=== PATIENT | male | born 1990 | race African-American/Black ===

== ENCOUNTER 2024-02-15 01:28 | Emergency (ER) | payer OTHER, SELFPAY ==
[2024-02-15 02:12] VITALS: BP 140/63; PULSE 83; RESP 18; TEMP 36.2; O2SAT 98; BMI 42.4
[2024-02-15 02:36] VITALS: PULSE 96; O2SAT 98
[2024-02-15 02:37] VITALS: BP 161/79; PULSE 87; O2SAT 98
--- NOTE | 2024-02-15 02:51 | ED.GENADULT ---
HPI - General Adult General Chief complaint: Weakness Stated complaint: tingling sensation for 2 days weakness in legs Time Seen by Provider: 02/15/24 02:45 Source: patient, RN notes reviewed and old records reviewed Mode of arrival: Ambulatory Limitations: no limitations History of Present Illness HPI narrative: 34-year-old male no reported medical issues but complains of numbness and tingling in his hands and bilateral lower extremities tracking upwards for several days. 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 Patient states no fevers no cold cough congestion. No headaches, no chest pain or shortness of breath no nausea or vomiting. No issues with bowel movements, no dysuria urgency or frequency. No incontinence fecal or urinary. Describes numbness and tingling discomfort in bilateral lower extremities up to the hips as well as bilateral hands but not above the hands. Patient notes he was to have little bit of lower back pain but that has not improved over time. He does not have any back pain currently. Describes feels a little bit weak but is able to ambulate. He states it is little bit difficult to ambulate can can not feel the ground very well. He did see primary care physician had labs drawn but has not had those resulted. Has a little difficulty with sleeping because it is so uncomfortable which is what prompted him to come tonight. He has not on any prescription medications. Prior surgeries include vasectomy. No known drug allergies. No regular tobacco, no regular alcohol or recreational drugs. He is accompanied by his family. Related Data Previous Rx's Medication Instructions Recorded gabapentin 300 mg capsule 300 mg PO TID #30 caps 02/15/24 (Neurontin) Allergies Allergy/AdvReac Type Severity Reaction Status Date / Time No Known Drug Allergies Allergy Verified 02/15/24 02:20 Review of Systems Review of Systems ROS Unobtainable: All systems reviewed & are unremarkable except as noted in HPI and below Exam Narrative Exam Narrative: GEN: well nourished, well appearing male, alert and oriented x [default value], patient appears to be in mild distress. HEENT: Atraumatic, pupils are equal round reactive to light, extraocular movements are intact, nares are clear, there is no conjunctival pallor. Throat is clear without any exudates, erythema, tonsillar enlargement or uvular deviation, no facial droop HEART: Regular rate and rhythm without murmur, clicks, rubs. LUNGS:Lungs clear to auscultation, no wheezes, rales, crackles, chest moves symmetrically ABD:bowel sounds normal, soft, non-tender, no guarding, rebound, rigidity, no masses noted, no hepatosplenomegaly :No CVA tenderness MSCL: Non-tender, no muscle atrophy, muscles strength 5/5 upper and lower extremities, full range of motion, normal gait NEURO:CN 2-12 intact, sensation decreased bilateral feet and shins but present and equal, sensation to light touch is present throughout all 4 extremities, reflexes 2/4 upper and lower extremities. finger nose finger test normal, heel gusman test normal. SKIN: No rash, erythema or other skin changes noted. Initial Vital Signs Initial Vital Signs: Vital Signs Temperature 97.2 F L 02/15/24 02:12 Pulse Rate 83 02/15/24 02:12 Respiratory Rate 18 02/15/24 02:12 Blood Pressure 140/63 02/15/24 02:12 Pulse Oximetry 98 02/15/24 02:12 Oxygen Delivery Method Room Air 02/15/24 02:12 Course Orders Ordered: ED Orders 02/15/24 03:20 CBC Auto Diff [Complete Blood Count AUTO DIFF] Stat CMP [Comprehensive Metabolic Panel] Stat ESR [Erythrocyte Sedimentation Rate] Stat TSH [Thyroid Stimulating Hormone] Stat Discontinued Medications Gabapentin (Gabapentin 300 Mg Capsule) 300 mg PO NOW ONE Stop: 02/15/24 04:44 Last Admin: 02/15/24 04:56 Dose: 300 mg Documented By: Vital Signs Vital signs: Vital Signs - 8 hr 02/15/24 02:12 02/15/24 02:36 02/15/24 02:37 Temperature 97.2 F L Pulse Rate 83 96 H Respiratory Rate 18 Blood Pressure 140/63 161/79 H Pulse Oximetry 98 98 Oxygen Delivery Method Room Air 02/15/24 02:37 02/15/24 03:00 02/15/24 03:01 Temperature Pulse Rate 87 84 Respiratory Rate 20 Blood Pressure 135/82 Pulse Oximetry 98 100 Oxygen Delivery Method Room Air 02/15/24 03:01 02/15/24 04:59 Temperature Pulse Rate 85 85 Respiratory Rate 16 Blood Pressure 134/84 Pulse Oximetry 99 99 Oxygen Delivery Method Room Air Medical Decision Making Lab Data 02/15/24 03:20 02/15/24 03:20 Labs: Lab Results 02/15/24 Range/Units 03:20 WBC 5.8 (4.5-11.0) X10^3/uL RBC 4.43 L (4.5-5.9) X10^6/uL Hgb 14.8 (13.5-17.5) g/dL Hct 43.0 (41-53) % MCV 97.1 (80-100) fL MCH 33.6 (26-34) PG MCHC 34.6 (30-36) % RDW 12.8 (11.6-14.8) % Plt Count 299 (150-400) X10^3/uL Neut % (Auto) 27.5 L (50-75) % Lymph % (Auto) 57.1 H (25-40) % [place] % (Auto) 13.3 (3-14) % Eos % (Auto) 1.7 L (2-4) % Baso % (Auto) 0.4 (0-2) % Neut # (Auto) 1600 (1942-0514) /uL Lymph # (Auto) 3300 (7582-4634) /uL [place] # (Auto) 800 (0-900) /uL Eos # (Auto) 100 (0-450) /uL Baso # (Auto) 0 (0-100) /uL ESR 4 (0-15) MM/HR Sodium 137 (137-145) mmol/L Potassium 4.1 (3.4-5.1) mmol/L Chloride 103 (98-107) mmol/L Carbon Dioxide 27 (22-32) mmol/L BUN 14 (9-20) mg/dL Creatinine 1.08 (0.66-1.25) mg/dL Estimated GFR > 60 (>60) mL/min BUN/Creatinine Ratio 13.0 (6-22) Glucose 95 (70-100) mg/dL Calcium 8.8 (8.4-10.2) mg/dL Total Bilirubin 0.5 (0.2-1.3) mg/dL AST 68 H (17-59) IU/L ALT 51 H (<50) IU/L Alkaline Phosphatase 54 (38-126) U/L Total Protein 7.5 (6.3-8.2) g/dL Albumin 4.3 (3.5-5.0) g/dL Globulin 3.2 (1.7-4.1) g/dL Albumin/Globulin Ratio 1.3 (1.0-2.8) TSH 2.43 (0.47-4.68) uIU/mL MDM Narrative Medical decision making narrative: 34-year-old male describing peripheral neuropathy, no known history of diabetes had an episode that lasted about a month in the past ultimately resolved did not have any workup at that time. Has been quite uncomfortable this most recent episode in keeping him from getting sleep. He did not follow up with outpatient and had labs sent but have not received results. Patient's neuro exam shows little bit of decreased sensation bilateral lower extremities he does have sensation to light touch but the underside of the feet is lessened. Otherwise has normal neurologic exam, normal gait. Labs show white count of 5.8 platelets of 229, hemoglobin of 14, electrolytes are appropriate creatinine is 1.08 glucose is 95 AST ALT are slightly elevated at 68 and 51 TSH is 2.43. ESR is 4 Discussed with patient can try Neurontin to see if this is helpful for symptoms. It would recommend follow up for further workup for peripheral neuropathy. Discharge Plan Departure Patient Disposition: Home Clinical Impression: Peripheral neuropathy Instructions: DI for Peripheral Neuropathy Activity Restrictions/Additional Instructions: Follow up with primary care for further workup what you are describing is peripheral neuropathy there can be a variety of causes of this. A copy of your labs today are included in your paperwork. You can take Neurontin 1 tablet every 8 hours. This medication can be titrated to higher doses if necessary. Talk with your physician about adjusting it if needed. Prescription was sent to [facility] Please return for new weakness, severe headaches, fevers, difficulty with breathing, persistent vomiting, new incontinence, new weakness or inability to ambulate safely or other new or concerning changes. Prescriptions: New gabapentin [Neurontin] 300 mg capsule 300 mg PO TID Qty: 30 0RF Referrals: ProviderRoger [Primary Care Provider] - Stand Alone Forms: Patient Portal/API/Survey
[2024-02-15 03:00] VITALS: PULSE 84; O2SAT 100
[2024-02-15 03:01] VITALS: BP 135/82; PULSE 85; RESP 20; O2SAT 99
--- NOTE | 2024-02-15 03:24 | PC.NURSE ---
21g butterfly needle straight stick for labs left hand without complications.
[2024-02-15 03:38] LABS: Add Manual Diff / Slide Review NO; Basophils Absolute Auto 0 /uL (0-100); Basophils Percent Auto 0.4 % (0-2); Eosinophils Absolute Auto 100 /uL (0-450); Eosinophils Percent Auto 1.7 % (2-4); Hemoglobin 14.8 g/dL (13.5-17.5); Lymphocytes Absolute Auto 3300 /uL (1100-4500); Lymphocytes Percent Auto 57.1 % (25-40); Mean Corpuscular HGB Conc 34.6 % (30-36); Mean Corpuscular Hemoglobin 33.6 PG (26-34); Mean Corpuscular Volume 97.1 fL (80-100); Monocytes Absolute Auto 800 /uL (0-900); Monocytes Percent Auto 13.3 % (3-14); Neutrophils Absolute Auto 1600 /uL (1500-7000); Neutrophils Percent Auto 27.5 % (50-75); Platelet Count 299 X10^3/uL (150-400); Red Blood Cell Count 4.43 X10^6/uL (4.5-5.9); Red Cell Distribution Width 12.8 % (11.6-14.8); White Blood Cell Count 5.8 X10^3/uL (4.5-11.0)
[2024-02-15 03:43] LABS: Alanine Aminotransferase 51 IU/L (<50); Albumin 4.3 g/dL (3.5-5.0); Albumin Globulin Ratio 1.3 (1.0-2.8); Alkaline Phosphatase 54 U/L (38-126); Aspartate Aminotransferase 68 IU/L (17-59); Bilirubin Total 0.5 mg/dL (0.2-1.3); Blood Urea Nitrogen 14 mg/dL (9-20); Calcium 8.8 mg/dL (8.4-10.2); Carbon Dioxide 27 mmol/L (22-32); Chloride 103 mmol/L (98-107); Estimated Glomerular Filt Rate > 60 mL/min (>60); Globulin 3.2 g/dL (1.7-4.1); Glucose 95 mg/dL (70-100); HEMOLYSIS 31 (0-50); Potassium 4.1 mmol/L (3.4-5.1); Sodium 137 mmol/L (137-145); Total Protein 7.5 g/dL (6.3-8.2)
[2024-02-15 04:15] LABS: Thyroid Stimulating Hormone 2.43 uIU/mL (0.47-4.68)
[2024-02-15 04:28] LABS: Erythrocyte Sedimentation Rate 4 MM/HR (0-15)
[2024-02-15] MEDS: GABAPENTIN 300 MG CAPSULE PO (04:56)
[2024-02-15 04:59] VITALS: BP 134/84; PULSE 85; RESP 16; O2SAT 99
== END 2024-02-15 05:01 | disposition home or self-care (01) ==
PROVIDERS: Emergency Provider Emergency Medicine
DX: G62.9 Polyneuropathy, unspecified (principal); M54.2 Cervicalgia
CPT/HCPCS: 80053; 84443; 85025; 85651; 99283

== ENCOUNTER 2024-02-19 10:00 | Emergency (ER) | payer OTHER, SELFPAY ==
[2024-02-19] VITALS (20 sets, daily range): BP systolic 133–165; BP diastolic 76–99; PULSE 76–100; RESP 14–17; TEMP 36.3; O2SAT 92–100; BMI 42.9
--- NOTE | 2024-02-19 15:13 | DI.CT.S_ITS ---
PROCEDURE: CT LUMBAR SPINE WO CON INDICATIONS: cannot walk TECHNIQUE: Noncontrast 3 mm thick sections acquired from the T12 level to the sacrum. Sagittal and coronal reformats were constructed. Oblique axial images were also reformatted through the disc levels. For radiation dose reduction, the following was used: automated exposure control. COMPARISON: , CT, CT CERVICAL SPINE WO CON, 02/19/2024, 15:22. , CT, CT THORACIC SPINE WO CON, 02/19/2024, 15:22. , CT, CT HEAD/BRAIN WO CON, 02/19/2024, 15:22. FINDINGS: Image quality: Excellent. Bones: No acute vertebral body compression fractures. No suspicious lytic or blastic bony lesions. No pars defects. Mild dextroconvex scoliotic curvature is seen. No focal AP alignment abnormality is seen. Partial fusion of the sacroiliac joints can be seen, right worse than left. T12-L1: Normal. L1-L2: Normal. L2-L3: The disc height is well preserved. Mild generalized disc bulge is seen. [id number] neural foraminal narrowing can be seen. No central canal narrowing is seen. L3-L4: The disc height is well preserved. Mild generalized disc bulge is seen. There is moderate right-sided and mild left-sided neural foraminal narrowing. Minimal central canal narrowing is seen. L4-L5: The disc height is well preserved. Mild to moderate generalized disc bulge is seen. There is a superimposed central disc protrusion. There is at least moderate bilateral neural foraminal narrowing seen. Mild central canal narrowing is seen. L5-S1: There is mild loss of disc height. Mild disc bulge is seen, with a mild central disc protrusion. There is at least moderate bilateral neural foraminal narrowing seen. Mild central canal narrowing is seen. Soft tissues: No retroperitoneal masses or hematomas. Visualized aorta is normal in caliber. A normal appendix is noted. IMPRESSION: Premature sites of narrowing can be seen, including at least moderate bilateral neural foraminal narrowing at L4-L5 and L5-S1. Dictated by: Miky aHstings M.D. on 02/19/2024 at 15:16 Approved by: Miky Hastings M.D. on 02/19/2024 at 15:19
--- NOTE | 2024-02-19 15:13 | DI.CT.S_ITS ---
PROCEDURE: CT THORACIC SPINE WO CON INDICATIONS: cannot walk TECHNIQUE: Noncontrast 3 mm thick sections acquired through the region of interest in the thoracic spine. Sagittal and coronal reformats were then constructed. For radiation dose reduction, the following was used: automated exposure control. COMPARISON: [facility], CT, CT CERVICAL SPINE WO CON, 02/19/2024, 15:22. [facility], CT, CT LUMBAR SPINE WO CON, 02/19/2024, 15:22. [facility], CT, CT HEAD/BRAIN WO CON, 02/19/2024, 15:22. FINDINGS: Image quality: This study is limited by body habitus. Bones: There is normal overall bony alignment. No acute vertebral body compression fractures. No suspicious sclerotic or lytic bony lesions. Central spinal canal is of normal overall caliber. Soft tissues: No paravertebral masses or hematomas. Visualized posteromedial lungs appear clear. IMPRESSION: No imaging explanation is found for this patient's presenting symptoms. Thoracic spine CT within normal limits. Dictated by: Miky Hastings M.D. on 02/19/2024 at 15:15 Approved by: Miky Hastings M.D. on 02/19/2024 at 15:16
--- NOTE | 2024-02-19 15:13 | DI.CT.S_ITS ---
PROCEDURE: CT CERVICAL SPINE WO CON INDICATIONS: cannot walk TECHNIQUE: Noncontrast 3 mm thick sections acquired from the skull base to the T4 level. Sagittal and coronal reformats were then constructed. For radiation dose reduction, the following was used: automated exposure control, adjustment of mA and/or kV according to patient size. COMPARISON: [facility], CT, CT THORACIC SPINE WO CON, 02/19/2024, 15:22. [facility], CT, CT LUMBAR SPINE WO CON, 02/19/2024, 15:22. [facility], CT, CT HEAD/BRAIN WO CON, 02/19/2024, 15:22. FINDINGS: Image quality: There is streak artifact seen through the level of the shoulders. This examination is somewhat limited by quantum mottle artifact. Bones: No fractures or dislocations. Visualized superior ribs are intact. Soft tissues: Prevertebral soft tissues are normal in thickness. No paravertebral hematomas. No apical pneumothoraces. IMPRESSION: Cervical spine CT within normal limits, without a cause the presenting history identified. Dictated by: Miky Hastings M.D. on 02/19/2024 at 15:14 Approved by: Miky Hastings M.D. on 02/19/2024 at 15:15
--- NOTE | 2024-02-19 15:13 | DI.CT.S_ITS ---
PROCEDURE: CT HEAD/BRAIN WO CON INDICATIONS: cannot walk TECHNIQUE: Noncontrast 4.5 mm thick angled axial sections acquired from the foramen magnum to the vertex, with coronal and sagittal reformats. For radiation dose reduction, the following was used: automated exposure control, adjustment of mA and/or kV according to patient size. COMPARISON: [facility], CT, CT THORACIC SPINE WO CON, 02/19/2024, 15:22. [facility], CT, CT LUMBAR SPINE WO CON, 02/19/2024, 15:22. [facility], CT, CT CERVICAL SPINE WO CON, 02/19/2024, 15:22. FINDINGS: Image quality: Mild streak artifact can be seen through the skull base. CSF spaces: Basal cisterns are patent. No extra-axial fluid collections. Ventricles are normal in size and shape. Brain: No midline shift. No intracranial masses or hemorrhage. Gallo-white matter interface is normal. Skull and face: Calvarium and visualized facial bones are intact, without suspicious lesions. Sinuses: Visualized sinuses and mastoids are clear. IMPRESSION: Normal noncontrast head CT. No acute intracranial hemorrhage is seen. To the limits of this noncontrast study, no findings of intracranial masses or mass effect can be seen. If there is strong clinical suspicion for an acute stroke, please consider a brain MRI for further evaluation, as it is more sensitive (assuming that there is no contraindication to MRI). Dictated by: Miky Hastings M.D. on 02/19/2024 at 15:13 Approved by: Miky Hastings M.D. on 02/19/2024 at 15:14
--- NOTE | 2024-02-19 15:13 | EKG_ITS ---
[address] [address] Test Date: 2024-02-19 Pat Name: Natali Atkins Department: [facility] Room: Gender: Male Deck Mate: GIOVANNA : 1990 Requested By: Order Number: [id number] Reading MD: Nikita Ponce Measurements Intervals [place] Rate: 82 P: 57 DE: 170 QRS: 8 QRSD: 86 T: 12 QT: 354 QTc: 413 Interpretive Statements Normal sinus rhythm Electronically Signed On 02-19-2024 15:35:41 PST by Nikita Ponce
[2024-02-19 16:05] LABS: Add Manual Diff / Slide Review NO; Basophils Absolute Auto 0 /uL (0-100); Basophils Percent Auto 0.3 % (0-2); Eosinophils Absolute Auto 100 /uL (0-450); Eosinophils Percent Auto 1.5 % (2-4); Hematocrit 45.6 % (41-53); Hemoglobin 15.6 g/dL (13.5-17.5); Lymphocytes Absolute Auto 3000 /uL (1100-4500); Lymphocytes Percent Auto 55.2 % (25-40); Mean Corpuscular HGB Conc 34.3 % (30-36); Mean Corpuscular Hemoglobin 33.3 PG (26-34); Mean Corpuscular Volume 97.3 fL (80-100); Monocytes Absolute Auto 600 /uL (0-900); Monocytes Percent Auto 11.7 % (3-14); Neutrophils Absolute Auto 1700 /uL (1500-7000); Neutrophils Percent Auto 31.3 % (50-75); Platelet Count 314 X10^3/uL (150-400); Red Blood Cell Count 4.69 X10^6/uL (4.5-5.9); Red Cell Distribution Width 12.6 % (11.6-14.8); White Blood Cell Count 5.3 X10^3/uL (4.5-11.0)
[2024-02-19 16:14] LABS: Creatine Kinase 459 U/L (55-170)
[2024-02-19 16:16] LABS: Alanine Aminotransferase 52 IU/L (<50); Albumin 4.4 g/dL (3.5-5.0); Albumin Globulin Ratio 1.3 (1.0-2.8); Alkaline Phosphatase 63 U/L (38-126); Aspartate Aminotransferase 70 IU/L (17-59); BUN Creatinine Ratio 11.3 (6-22); Bilirubin Total 0.6 mg/dL (0.2-1.3); Blood Urea Nitrogen 12 mg/dL (9-20); Calcium 9.2 mg/dL (8.4-10.2); Carbon Dioxide 30 mmol/L (22-32); Chloride 103 mmol/L (98-107); Estimated Glomerular Filt Rate > 60 mL/min (>60); Ethanol (ETOH) < 10 mg/dL; Globulin 3.4 g/dL (1.7-4.1); Glucose 87 mg/dL (70-100); HEMOLYSIS 17 (0-50); Potassium 4.5 mmol/L (3.4-5.1); Sodium 138 mmol/L (137-145); Total Protein 7.8 g/dL (6.3-8.2)
[2024-02-19 16:27] LABS: Troponin I < 0.012 ng/mL (0.01-0.034)
--- NOTE | 2024-02-19 16:58 | ED_ITS ---
HPI - Neuro Symptoms/Deficit <Brian Frances MD - Last Filed: 02/20/24 11:40> General Chief Complaint: Neuro Symptoms/Deficit Stated Complaint: cant walk/cant stand up on own Time Seen by Provider: 02/19/24 15:12 Source: patient Mode of arrival: Family Vehicle History of Present Illness HPI Narrative: 34-year-old male with ongoing 2 weeks duration of tingling sensation to his feet, seen here on 02/15/2024 with lab workup at that time serum studies unremarkable including white blood cell count and ESR and TSH, no imaging at that time, felt to have peripheral neuropathy, and was started on Neurontin at that time. Since then he still has persistence of numbness and tingling to the lower extremity, last few days also to the left and right upper extremities in the fingers and hands, not particularly more proximal. 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 He denies any injury trauma. He has had chronic back pain in the past but not recently. No incontinence to urine or stool. He has not believe the Neurontin is making him feel drowsy. He denies fevers or chills. He denies cough shortness of breath. He denies abdominal pain. He does recall receiving flu vaccination 01/26/2024. On Anticoagulants: No Related Data Previous Rx's Medication Instructions Recorded gabapentin 300 mg capsule 300 mg PO TID #30 caps 02/15/24 (Neurontin) Allergies Allergy/AdvReac Type Severity Reaction Status Date / Time No Known Drug Allergies Allergy Verified 02/15/24 02:20 <Richard Cabezas DO - Last Filed: 02/24/24 18:06> History of Present Illness HPI Narrative: 34-year-old male with ongoing 2 weeks duration of tingling sensation to his feet, seen here on 02/15/2024 with lab workup at that time serum studies unremarkable including white blood cell count and ESR and TSH, no imaging at that time, felt to have peripheral neuropathy, and was started on Neurontin at that time. Since then he still has persistence of numbness and tingling to the lower extremity, last few days also to the left and right upper extremities in the fingers and hands, not particularly more proximal. He denies any injury trauma. He has had chronic back pain in the past but not particularly recently. No incontinence to urine or stool. He has not believe the Neurontin is making him feel drowsy. He denies fevers or chills. He denies cough shortness of breath. He denies abdominal pain. He does recall flu vaccination 01/26/2024. Review of Systems <Brian Frances MD - Last Filed: 02/20/24 11:40> Review of Systems Narrative: See HPI Hematologic/Lymphatic On Anticoagulants: No Patient History <Brian Frances MD - Last Filed: 02/20/24 11:40> Social History Smoking Status: Never smoker Smoking Status: Never smoker alcohol intake frequency: 0-2 drinks per day Substance Use Type: does not use Exam <Brian Frances MD - Last Filed: 02/20/24 11:40> Narrative Exam Narrative: GENERAL: Well-developed patient, in mild distress. HEAD: Atraumatic. Normocephalic. EYES: Pupils equal round and reactive. Extraocular motions intact. No scleral icterus. No injection or drainage. ENT: Nose without bleeding, purulent drainage. Throat without erythema, tonsillar hypertrophy or exudate. Airway patent. NECK: Trachea midline. Non tender CARDIOVASCULAR: Regular rate and rhythm without murmurs, gallops, or rubs. RESPIRATORY: Clear to auscultation. Breath sounds equal bilaterally. No wheezes, rales, or rhonchi. GASTROINTESTINAL: Abdomen soft, non-tender, nondistended. EXTREMITIES: No edema or joint tenderness. BACK: Nontender without deformity or crepitance. No flank tenderness. NEURO: AOx3. Motor functions grossly nonfocal, sensation intact to light touch face but decreased both feet and both hands, finger to nose testing normally bilaterally. Gait not tested initially, said he felt to weak to try this. SKIN: No rash or erythema of visible areas Initial Vital Signs Initial Vital Signs: Vital Signs Temperature 97.4 F L 02/19/24 10:32 Pulse Rate 88 02/19/24 10:32 Respiratory Rate 17 02/19/24 10:32 Blood Pressure 165/97 H 02/19/24 10:32 Pulse Oximetry 99 02/19/24 10:32 Oxygen Delivery Method Room Air 02/19/24 10:32 <Richard Cabezas DO - Last Filed: 02/24/24 18:06> Initial Vital Signs Initial Vital Signs: Vital Signs Temperature 97.4 F L 02/19/24 10:32 Pulse Rate 88 02/19/24 10:32 Respiratory Rate 17 02/19/24 10:32 Blood Pressure 165/97 H 02/19/24 10:32 Pulse Oximetry 99 02/19/24 10:32 Oxygen Delivery Method Room Air 02/19/24 10:32 <Corrine Riggs DO - Last Filed: 02/20/24 13:26> Initial Vital Signs Initial Vital Signs: Vital Signs Temperature 97.4 F L 02/19/24 10:32 Pulse Rate 88 02/19/24 10:32 Respiratory Rate 17 02/19/24 10:32 Blood Pressure 165/97 H 02/19/24 10:32 Pulse Oximetry 99 02/19/24 10:32 Oxygen Delivery Method Room Air 02/19/24 10:32 Course <Brian Frances MD - Last Filed: 02/20/24 11:40> Orders Ordered: Discontinued Medications Acetaminophen (Acetaminophen 325 Mg Tablet) 650 mg PO Q6H PRN PRN Reason: Fever/Mild Pain (1-3) Last Admin: 02/20/24 10:40 Dose: 650 mg Documented By: DEVANTE Hydrocodone Bitart/Acetaminophen (Hydrocodone/Acet 5/325 Tablet) 1 tab PO NOW ONE Stop: 02/20/24 05:35 Last Admin: 02/20/24 05:41 Dose: 1 tab Documented By: NORMA Hydromorphone HCl (Hydromorphone 1 Mg Inj) 1 mg IV NOW ONE Stop: 02/19/24 21:06 Last Admin: 02/19/24 21:15 Dose: 1 mg Documented By: NORMA Acetaminophen (Ofirmev) 1,000 mg in 100 mls @ 400 mls/hr IV NOW ONE Stop: 02/19/24 19:44 Last Infusion: 02/19/24 20:02 Dose: Infused Documented By: Admin: 02/19/24 19:38 Dose: 400 mls/hr Documented By: NORMA Vital Signs Vital signs: Vital Signs - 8 hr 02/20/24 05:30 02/20/24 05:37 02/20/24 05:37 Temperature Pulse Rate 77 95 H Blood Pressure 160/88 H Pulse Oximetry 96 96 Oxygen Delivery Method 02/20/24 06:00 02/20/24 06:00 02/20/24 06:30 Temperature Pulse Rate 98 H 79 Blood Pressure 153/74 H Pulse Oximetry 97 100 Oxygen Delivery Method 02/20/24 06:30 02/20/24 06:42 02/20/24 07:00 Temperature 98.0 F Pulse Rate 96 H Blood Pressure 147/76 H Pulse Oximetry 100 Oxygen Delivery Method 02/20/24 07:00 02/20/24 08:54 02/20/24 08:56 Temperature Pulse Rate 94 H 90 Blood Pressure 155/95 H Pulse Oximetry 98 97 Oxygen Delivery Method Room Air 02/20/24 08:56 02/20/24 08:59 02/20/24 09:00 Temperature Pulse Rate 72 Blood Pressure 175/101 H 171/93 H Pulse Oximetry Oxygen Delivery Method 02/20/24 09:01 02/20/24 09:30 02/20/24 10:00 Temperature Pulse Rate 99 H 91 H 106 H Blood Pressure Pulse Oximetry 97 98 99 Oxygen Delivery Method Room Air 02/20/24 10:30 02/20/24 11:07 02/20/24 11:09 Temperature Pulse Rate 105 H 101 H 96 H Blood Pressure Pulse Oximetry 98 98 97 Oxygen Delivery Method Room Air 02/20/24 11:09 Temperature Pulse Rate Blood Pressure 171/85 H Pulse Oximetry Oxygen Delivery Method <Richard Cabezas DO - Last Filed: 02/24/24 18:06> Orders Ordered: Discontinued Medications Acetaminophen (Acetaminophen 325 Mg Tablet) 650 mg PO Q6H PRN PRN Reason: Fever/Mild Pain (1-3) Last Admin: 02/20/24 10:40 Dose: 650 mg Documented By: DEVANTE Hydrocodone Bitart/Acetaminophen (Hydrocodone/Acet 5/325 Tablet) 1 tab PO NOW ONE Stop: 02/20/24 05:35 Last Admin: 02/20/24 05:41 Dose: 1 tab Documented By: NORMA Hydromorphone HCl (Hydromorphone 1 Mg Inj) 1 mg IV NOW ONE Stop: 02/19/24 21:06 Last Admin: 02/19/24 21:15 Dose: 1 mg Documented By: NORMA Acetaminophen (Ofirmev) 1,000 mg in 100 mls @ 400 mls/hr IV NOW ONE Stop: 02/19/24 19:44 Last Infusion: 02/19/24 20:02 Dose: Infused Documented By: Admin: 02/19/24 19:38 Dose: 400 mls/hr Documented By: NORMA Vital Signs Vital signs: Vital Signs - 8 hr 02/20/24 05:30 02/20/24 05:37 02/20/24 05:37 Temperature Pulse Rate 77 95 H Blood Pressure 160/88 H Pulse Oximetry 96 96 Oxygen Delivery Method 02/20/24 06:00 02/20/24 06:00 02/20/24 06:30 Temperature Pulse Rate 98 H 79 Blood Pressure 153/74 H Pulse Oximetry 97 100 Oxygen Delivery Method 02/20/24 06:30 02/20/24 06:42 02/20/24 07:00 Temperature 98.0 F Pulse Rate 96 H Blood Pressure 147/76 H Pulse Oximetry 100 Oxygen Delivery Method 02/20/24 07:00 02/20/24 08:54 02/20/24 08:56 Temperature Pulse Rate 94 H 90 Blood Pressure 155/95 H Pulse Oximetry 98 97 Oxygen Delivery Method Room Air 02/20/24 08:56 02/20/24 08:59 02/20/24 09:00 Temperature Pulse Rate 72 Blood Pressure 175/101 H 171/93 H Pulse Oximetry Oxygen Delivery Method 02/20/24 09:01 02/20/24 09:30 02/20/24 10:00 Temperature Pulse Rate 99 H 91 H 106 H Blood Pressure Pulse Oximetry 97 98 99 Oxygen Delivery Method Room Air 02/20/24 10:30 02/20/24 11:07 02/20/24 11:09 Temperature Pulse Rate 105 H 101 H 96 H Blood Pressure Pulse Oximetry 98 98 97 Oxygen Delivery Method Room Air 02/20/24 11:09 Temperature Pulse Rate Blood Pressure 171/85 H Pulse Oximetry Oxygen Delivery Method <Corrine Riggs DO - Last Filed: 02/20/24 13:26> Orders Ordered: Discontinued Medications Acetaminophen (Acetaminophen 325 Mg Tablet) 650 mg PO Q6H PRN PRN Reason: Fever/Mild Pain (1-3) Last Admin: 02/20/24 10:40 Dose: 650 mg Documented By: SPF Hydrocodone Bitart/Acetaminophen (Hydrocodone/Acet 5/325 Tablet) 1 tab PO NOW ONE Stop: 02/20/24 05:35 Last Admin: 02/20/24 05:41 Dose: 1 tab Documented By: NORMA Hydromorphone HCl (Hydromorphone 1 Mg Inj) 1 mg IV NOW ONE Stop: 02/19/24 21:06 Last Admin: 02/19/24 21:15 Dose: 1 mg Documented By: NORMA Acetaminophen (Ofirmev) 1,000 mg in 100 mls @ 400 mls/hr IV NOW ONE Stop: 02/19/24 19:44 Last Infusion: 02/19/24 20:02 Dose: Infused Documented By: Admin: 02/19/24 19:38 Dose: 400 mls/hr Documented By: NORMA Vital Signs Vital signs: Vital Signs - 8 hr 02/20/24 05:30 02/20/24 05:37 02/20/24 05:37 Temperature Pulse Rate 77 95 H Blood Pressure 160/88 H Pulse Oximetry 96 96 Oxygen Delivery Method 02/20/24 06:00 02/20/24 06:00 02/20/24 06:30 Temperature Pulse Rate 98 H 79 Blood Pressure 153/74 H Pulse Oximetry 97 100 Oxygen Delivery Method 02/20/24 06:30 02/20/24 06:42 02/20/24 07:00 Temperature 98.0 F Pulse Rate 96 H Blood Pressure 147/76 H Pulse Oximetry 100 Oxygen Delivery Method 02/20/24 07:00 02/20/24 08:54 02/20/24 08:56 Temperature Pulse Rate 94 H 90 Blood Pressure 155/95 H Pulse Oximetry 98 97 Oxygen Delivery Method Room Air 02/20/24 08:56 02/20/24 08:59 02/20/24 09:00 Temperature Pulse Rate 72 Blood Pressure 175/101 H 171/93 H Pulse Oximetry Oxygen Delivery Method 02/20/24 09:01 02/20/24 09:30 02/20/24 10:00 Temperature Pulse Rate 99 H 91 H 106 H Blood Pressure Pulse Oximetry 97 98 99 Oxygen Delivery Method Room Air 02/20/24 10:30 02/20/24 11:07 02/20/24 11:09 Temperature Pulse Rate 105 H 101 H 96 H Blood Pressure Pulse Oximetry 98 98 97 Oxygen Delivery Method Room Air 02/20/24 11:09 Temperature Pulse Rate Blood Pressure 171/85 H Pulse Oximetry Oxygen Delivery Method MDM - Neuro Symptoms/Deficit <Brian Frances MD - Last Filed: 02/20/24 11:40> Lab Data Attestation: I reviewed the patient's lab results. Lab results narrative: Glucose 87. White blood cell count 5300, hemoglobin normal, platelets unremarkable. Basic metabolic panel unremarkable. Liver functions unremarkable. CPK 459 not particularly elevated. Troponin negative. Alcohol negative. 02/19/24 15:55 02/19/24 15:55 Labs: Lab Results 02/19/24 02/19/24 02/19/24 Range/Units 15:55 16:53 19:20 WBC 5.3 (4.5-11.0) X10^3/uL RBC 4.69 (4.5-5.9) X10^6/uL Hgb 15.6 (13.5-17.5) g/dL Hct 45.6 (41-53) % MCV 97.3 (80-100) fL MCH 33.3 (26-34) PG MCHC 34.3 (30-36) % RDW 12.6 (11.6-14.8) % Plt Count 314 (150-400) X10^3/uL Neut % (Auto) 31.3 L (50-75) % Lymph % (Auto) 55.2 H (25-40) % [place] % (Auto) 11.7 (3-14) % Eos % (Auto) 1.5 L (2-4) % Baso % (Auto) 0.3 (0-2) % Neut # (Auto) 1700 (5342-8566) /uL Lymph # (Auto) 3000 (4880-6541) /uL [place] # (Auto) 600 (0-900) /uL Eos # (Auto) 100 (0-450) /uL Baso # (Auto) 0 (0-100) /uL ESR 2 (0-15) MM/HR Sodium 138 (137-145) mmol/L Potassium 4.5 (3.4-5.1) mmol/L Chloride 103 (98-107) mmol/L Carbon Dioxide 30 (22-32) mmol/L BUN 12 (9-20) mg/dL Creatinine 1.06 (0.66-1.25) mg/dL Estimated GFR > 60 (>60) mL/min BUN/Creatinine Ratio 11.3 (6-22) Glucose 87 (70-100) mg/dL Calcium 9.2 (8.4-10.2) mg/dL Total Bilirubin 0.6 (0.2-1.3) mg/dL AST 70 H (17-59) IU/L ALT 52 H (<50) IU/L Alkaline Phosphatase 63 (38-126) U/L Total Creatine Kinase 459 H (55-170) U/L Troponin I < 0.012 (0.01-0.034) ng/mL Total Protein 7.8 (6.3-8.2) g/dL Albumin 4.4 (3.5-5.0) g/dL Globulin 3.4 (1.7-4.1) g/dL Albumin/Globulin Ratio 1.3 (1.0-2.8) Vitamin B12 688 (239-931) pg/mL Folate 13.1 (2.76-20.0) ng/mL U Opiates 300ng/mL cut Negative (Negative) Ur Oxycodone Screen Negative (Negative) Urine Methadone Screen Negative (Negative) Ur Barbiturates Screen Negative (Negative) U Tricyclic Antidepress Negative (Negative) Ur Phencyclidine Scrn Negative (Negative) Ur Amphetamines Screen Negative (Negative) U Methamphetamines Scrn Negative (Negative) Ur MDMA Scrn (Ecstasy) Negative (Negative) U Benzodiazepines Scrn Negative (Negative) Urine Cocaine Screen Negative (Negative) U Marijuana (THC) Screen Negative (Negative) Urine pH Normal (Normal) Urine Specific [place] Normal (Normal) Ethyl Alcohol < 10 ( - 10) mg/dL Ur Creatinine Normal (Normal) Chlamy pneumoniae PCR Not detected (Not Detect) Adenovirus (PCR) Not detected (Not Detect) B. pertussis DNA (PCR) Not detected (Not Detect) B.parapertussis DNA PCR Not detected (Not Detecte) Coronavirus OC43 (PCR) Not detected (Not Detect) Coronavirus HKU1 (PCR) Not detected (Not Detect) Coronavirus 229E (PCR) Not detected (Not Detect) SARS-CoV-2 (PCR) Not detected (Not Detecte) Coronavirus NL63 (PCR) Not detected (Not Detect) Human Metapneumovir PCR Not detected (Not Detect) Influenza Type A (PCR) Not detected (Not Detect) Influenza Type B (PCR) Not detected (Not Detect) M. pneumoniae (PCR) Not detected (Not Detect) Parainfluenza 1 (PCR) Not detected (Not Detect) Parainfluenza 2 (PCR) Not detected (Not Detect) Parainfluenza 3 (PCR) Not detected (Not Detect) Parainfluenza 4 (PCR) Not detected (Not Detect) RSV (PCR) Not detected (Not Detect) Entero/Rhino (PCR) Not detected (Not Detect) Point of Care Testing Glucose POC 100 Urine Dip Bedside Urine Glucose Negative Bedside Urine Bilirubin - Negative Bedside Urine Ketone - Negative Urine Specific [place] 1.015 Bedside Urine Occult Blood - Negative Bedside Urine pH 6.0 Bedside Urine Protein - Negative Bedside Urine Urobilinogen - Negative Bedside Urine Nitrite - Negative Bedside Urine Leukocytes - Negative Esterase Imaging Data CT scan - head: Radiologist's Impression: [address] [address] [address] Scan Report Signed Patient: Natali Atkins MR#: [id number] : 1990 Acct:[id number] Age/Sex: 34 / M Date of Service: 02/19/24 Loc: ED Accession Number: [id number] Procedure: CT head/brain wo con Ordering Provider: Brian Frances MD PROCEDURE: CT HEAD/BRAIN WO CON INDICATIONS: cannot walk TECHNIQUE: Noncontrast 4.5 mm thick angled axial sections acquired from the foramen magnum to the vertex, with coronal and sagittal reformats. For radiation dose reduction, the following was used: automated exposure control, adjustment of mA and/or kV according to patient size. COMPARISON: [facility], CT, CT THORACIC SPINE WO CON, 02/19/2024, 15:22. [facility], CT, CT LUMBAR SPINE WO CON, 02/19/2024, 15:22. [facility], CT, CT CERVICAL SPINE WO CON, 02/19/2024, 15:22. FINDINGS: Image quality: Mild streak artifact can be seen through the skull base. CSF spaces: Basal cisterns are patent. No extra-axial fluid collections. Ventricles are normal in size and shape. Brain: No midline shift. No intracranial masses or hemorrhage. Gallo-white matter interface is normal. Skull and face: Calvarium and visualized facial bones are intact, without suspicious lesions. Sinuses: Visualized sinuses and mastoids are clear. IMPRESSION: Normal noncontrast head CT. No acute intracranial hemorrhage is seen. To the limits of this noncontrast study, no findings of intracranial masses or mass effect can be seen. If there is strong clinical suspicion for an acute stroke, please consider a brain MRI for further evaluation, as it is more sensitive (assuming that there is no contraindication to MRI). Dictated by: Miky Hastings M.D. on 02/19/2024 at 15:13 Approved by: Miky Hastings M.D. on 02/19/2024 at 15:14 CT - cervical spine: Radiologist's Impression: [place] [address] CT Scan Report Signed Patient: Natali Atkins MR#: [id number] : 1990 Acct:[id number] Age/Sex: 34 / M Date of Service: 02/19/24 Loc: ED Accession Number: [id number] Procedure: CT cervical spine wo con Ordering Provider: Brian Frances MD PROCEDURE: CT CERVICAL SPINE WO CON INDICATIONS: cannot walk TECHNIQUE: Noncontrast 3 mm thick sections acquired from the skull base to the T4 level. Sagittal and coronal reformats were then constructed. For radiation dose reduction, the following was used: automated exposure control, adjustment of mA and/or kV according to patient size. COMPARISON: [facility], CT, CT THORACIC SPINE WO CON, 02/19/2024, 15:22. [facility], CT, CT LUMBAR SPINE WO CON, 02/19/2024, 15:22. [facility], CT, CT HEAD/BRAIN WO CON, 02/19/2024, 15:22. FINDINGS: Image quality: There is streak artifact seen through the level of the shoulders. This examination is somewhat limited by quantum mottle artifact. Bones: No fractures or dislocations. Visualized superior ribs are intact. Soft tissues: Prevertebral soft tissues are normal in thickness. No paravertebral hematomas. No apical pneumothoraces. IMPRESSION: Cervical spine CT within normal limits, without a cause the presenting history identified. Dictated by: Miky Hastings M.D. on 02/19/2024 at 15:14 Approved by: Miky Hastings M.D. on 02/19/2024 at 15:15 CT thoracic spine: Radiologist's Impression: [address] [address] [address] Scan Report Signed Patient: Natali Atkins MR#: [id number] : 1990 Acct:[id number] Age/Sex: 34 / M Date of Service: 02/19/24 Loc: ED Accession Number: [id number] Procedure: CT thoracic spine wo con Ordering Provider: Brian Frances MD PROCEDURE: CT THORACIC SPINE WO CON INDICATIONS: cannot walk TECHNIQUE: Noncontrast 3 mm thick sections acquired through the region of interest in the thoracic spine. Sagittal and coronal reformats were then constructed. For radiation dose reduction, the following was used: automated exposure control. COMPARISON: [facility], CT, CT CERVICAL SPINE WO CON, 02/19/2024, 15:22. [facility], CT, CT LUMBAR SPINE WO CON, 02/19/2024, 15:22. [facility], CT, CT HEAD/BRAIN WO CON, 02/19/2024, 15:22. FINDINGS: Image quality: This study is limited by body habitus. Bones: There is normal overall bony alignment. No acute vertebral body compression fractures. No suspicious sclerotic or lytic bony lesions. Central spinal canal is of normal overall caliber. Soft tissues: No paravertebral masses or hematomas. Visualized posteromedial lungs appear clear. IMPRESSION: No imaging explanation is found for this patient's presenting symptoms. Thoracic spine CT within normal limits. Dictated by: Miky Hastings M.D. on 02/19/2024 at 15:15 Approved by: Miky Hastings M.D. on 02/19/2024 at 15:16 CT lumbar spine: Radiologist's Impression: [address] [address] [address] Scan Report Signed Patient: Natali Atkins MR#: [id number] : 1990 Acct:[id number] Age/Sex: 34 / M Date of Service: 02/19/24 Loc: ED Accession Number: [id number] Procedure: CT lumbar spine wo con Ordering Provider: Brian Frances MD PROCEDURE: CT LUMBAR SPINE WO CON INDICATIONS: cannot walk TECHNIQUE: Noncontrast 3 mm thick sections acquired from the T12 level to the sacrum. Sagittal and coronal reformats were constructed. Oblique axial images were also reformatted through the disc levels. For radiation dose reduction, the following was used: automated exposure control. COMPARISON: [facility], CT, CT CERVICAL SPINE WO CON, 02/19/2024, 15:22. [facility], CT, CT THORACIC SPINE WO CON, 02/19/2024, 15:22. [facility], CT, CT HEAD/BRAIN WO CON, 02/19/2024, 15:22. FINDINGS: Image quality: Excellent. Bones: No acute vertebral body compression fractures. No suspicious lytic or blastic bony lesions. No pars defects. Mild dextroconvex scoliotic curvature is seen. No focal AP alignment abnormality is seen. Partial fusion of the sacroiliac joints can be seen, right worse than left. T12-L1: Normal. L1-L2: Normal. L2-L3: The disc height is well preserved. Mild generalized disc bulge is seen. [id number]-ar-[place] neural foraminal narrowing can be seen. No central canal narrowing is seen. L3-L4: The disc height is well preserved. Mild generalized disc bulge is seen. There is moderate right-sided and mild left-sided neural foraminal narrowing. Minimal central canal narrowing is seen. L4-L5: The disc height is well preserved. Mild to moderate generalized disc bulge is seen. There is a superimposed central disc protrusion. There is at least moderate bilateral neural foraminal narrowing seen. Mild central canal narrowing is seen. L5-S1: There is mild loss of disc height. Mild disc bulge is seen, with a mild central disc protrusion. There is at least moderate bilateral neural foraminal narrowing seen. Mild central canal narrowing is seen. Soft tissues: No retroperitoneal masses or hematomas. Visualized aorta is normal in caliber. A normal appendix is noted. IMPRESSION: Premature sites of narrowing can be seen, including at least moderate bilateral neural foraminal narrowing at L4-L5 and L5-S1. Dictated by: Miky Hastings M.D. on 02/19/2024 at 15:16 Approved by: Miky Hastings M.D. on 02/19/2024 at 15:19 ECG Data Attestation: I personally reviewed and interpreted this ECG as follows: Interpretation: Normal sinus rhythm with rate 82, no obvious ST segment elevation or depression changes. MS 1 70, QRS 86, QTC 413. Normal voltage, normal axis. MDM Narrative Medical decision making narrative: 34-year-old male with 2 weeks duration bilateral lower extremity distal numbness sensation, previous low back pain but not particularly worse recently, no injury, seen here 02/15/2024 with similar lower extremity tingling numbness symptoms, felt to have peripheral neuropathy started on gabapentin 300 mg 3 times daily. Still having distal numbness sensation in both feet, now few days of bilateral hand numbness sensation. He has interval increased sensation of weakness, feels like he can not get around and walk count, generalized weakness, perhaps more distal than proximal. No shortness of breath. He had been having intermittent chest discomfort but not recent, not today. Previous evaluation 02/15/24 no imaging, we will pursue imaging today. CT brain, cervical spine, thoracic spine, lumbar spine ordered. Labs sent. White blood cell count again not elevated, CPK mildly elevated only. EKG unremarkable. Electrolytes again normal. Glucose normal. Renal function normal. Liver functions normal. CT head no acute changes, see radiology report CT cervical spine no acute changes, no significant narrowing, see radiology report CT thoracic spine, no acute changes, no significant narrowing, see radiology report. CT lumbar spine, no acute changes, some narrowing foraminal L4-L5 and L5-S1, no description of central cord area narrowing, see radiology report Trial of ambulation, patient was fairly unsteady per nursing. DDx consider spinal cord compression but CT C-spine T-spine L-spine imaging not convincing at any particular level for significant central spinal problem although spine could be further delineated with MRI when available, consider Guillain-[place] with peripheral predominant numbness, consider transverse myelitis but unclear level of symptoms, consider myositis but CPK not particularly elevated, seems atypical for stroke or other brain etiology with negative CT head but MRI brain imaging could be performed, recent TSH previous visit unremarkable doubt hypothyroidism, consider B12/folate deficiencies but these might be send out labs, consider malingering, other. Consider MRI brain/spine imaging. Electrolytes unremarkable. Repeat ESR sent to compared to prior study last visit, pending. Will add vitamin B12 and folic acid levels ordered, might be send out labs. [facility] [place] Dr. Jocelynn Cabezas: Received turned over. Review patient's history and physical. The patient's workup up to this point. Is examined workup is not consistent with an infectious process. Low suspicion for any sort of fractures or dislocation based on his workup. Did consider an inflammatory process however ESR and CRP are negative. B12 and folate are negative. I did consider Guillain[place] however only potential inciting event could have been the flu vaccine although this is highly unlikely. Attempted to stand the patient at bedside and he was very much unable to support his weight. He states he thinks it is because of both pain and weakness. Patient does require further evaluation to include MRI. The studies were ordered. Care turned over to day provider change of shift to follow up and disposition. 11/04/2023 Dr. Riggs: Patient signed out to myself by Dr. Cabezas. Patient was seen myself at recent visit on 02/15/2024. At that time patient had paresthesias and pain in bilateral hands lower extremities up towards thigh. Was able to ambulate but could not feel his feet very well on the ground. Patient is examined that time showed some decreased sensation but no other acute changes he would noted he had had a similar episode several years ago that is self resolved. Patient's labs were reviewed mildly elevated AST ALT and total CK of 459. TSH, B12 folate are all normal UDS and ETOH are negative respiratory panel is negative. Patient had head CT cervical spine thoracic and lumbar spine CT he that showed some degenerative changes but no other acute change. Patient went for MR of the brain, C-spine thoracic and L-spine this morning during sign- out. Peak flow obtained is 550. EXAM GEN: well nourished, well appearing male, alert and oriented x 3, patient appears to be in mild distress. HEENT: Atraumatic, pupils are equal round reactive to light, extraocular movements are intact, nares are clear, TMs are clear with no fluid, there is no conjunctival pallor. Throat is clear without any exudates, erythema, tonsillar enlargement or uvular deviation, no facial droop HEART: Regular rate and rhythm without murmur, clicks, rubs. Pulses are equal in upper and lower extremities LUNGS:Lungs clear to auscultation, no wheezes, rales, crackles, chest moves symmetrically ABD:bowel sounds normal, soft, non-tender, no guarding, rebound, rigidity, no masses noted, no hepatosplenomegaly :No CVA tenderness MSCL: Non-tender, no muscle atrophy, muscles strength 5/5 upper and lower extremities with no drift, patient does have slightly decreased plantar flexion left compared to right, irrigator equal bilaterally, full range of motion of upper extremities, but has good movement of the thighs but does have some ataxia of the lower extremities. NEURO:CN 2-12 intact, no clonus, reflexes decreased sensation bilateral lower extremity, finger nose finger test normal bilaterally, heel gusman test difficult bilaterally. No dysarthria or aphasia. MRI brain several T2 hyperintense foci seen in the white matter primarily seen peripherally pattern, labs are to patient's history of migraines differential includes multiple sclerosis, no findings of acute or subacute infarction no prior territorial infarct seen. MRI C-spine focal C5-C6 degenerative change moderate right-sided neural foraminal narrowing. MRI T-spine noncontrast thoracic spine MRI within normal limits MRI L-spine premature lumbar spine degenerative changes worse inferiorly. Imaging of the brain shows potential source of patient's symptoms although they note migraines can sometimes cause similar changes. There is minimal central canal narrowing and moderate central canal narrowing in the lumbar spine there is some compression upon the exiting nerve roots at L5-S1 as well as some other changes throughout the lower lumbar spine but does not account for patient's upper extremity symptoms. Discussed with patient joe needs transfer to be evaluated by Neurology regardless of result today patient is quite weak with progression of his symptoms since last seen. Discussed with patient might require lumbar puncture dependent an MR results consultation with Neurology. Did obtain peak flow. Patient does not appreciate any trouble swallowing, no difficulty with breathing. No issues with incontinence. Calls out to multiple facilities. 1000: Consult with neurology, Dr. Sommers at [facility]. Reviewed patient's history most recent visit and workup today including MRI results. States we can hold off on lumbar puncture at this time they will see patient they are asked that we child with the hospitalist for transfer. 1053: Spoke with Dr. Arellano, hospitalist who accepts for transfer. Reviewed findings with patient, plan for transfer he was agreeable. For something for pain but would like to avoid narcotics constipation we will give some Tylenol. All questions answered. <Richard Jocelynn, DO - Last Filed: 02/24/24 18:06> Lab Data Labs: Lab Results 02/19/24 02/19/24 02/19/24 Range/Units 15:55 16:53 19:20 WBC 5.3 (4.5-11.0) X10^3/uL RBC 4.69 (4.5-5.9) X10^6/uL Hgb 15.6 (13.5-17.5) g/dL Hct 45.6 (41-53) % MCV 97.3 (80-100) fL MCH 33.3 (26-34) PG MCHC 34.3 (30-36) % RDW 12.6 (11.6-14.8) % Plt Count 314 (150-400) X10^3/uL Neut % (Auto) 31.3 L (50-75) % Lymph % (Auto) 55.2 H (25-40) % [place] % (Auto) 11.7 (3-14) % Eos % (Auto) 1.5 L (2-4) % Baso % (Auto) 0.3 (0-2) % Neut # (Auto) 1700 (4877-0499) /uL Lymph # (Auto) 3000 (8334-7430) /uL [place] # (Auto) 600 (0-900) /uL Eos # (Auto) 100 (0-450) /uL Baso # (Auto) 0 (0-100) /uL ESR 2 (0-15) MM/HR Sodium 138 (137-145) mmol/L Potassium 4.5 (3.4-5.1) mmol/L Chloride 103 (98-107) mmol/L Carbon Dioxide 30 (22-32) mmol/L BUN 12 (9-20) mg/dL Creatinine 1.06 (0.66-1.25) mg/dL Estimated GFR > 60 (>60) mL/min BUN/Creatinine Ratio 11.3 (6-22) Glucose 87 (70-100) mg/dL Calcium 9.2 (8.4-10.2) mg/dL Total Bilirubin 0.6 (0.2-1.3) mg/dL AST 70 H (17-59) IU/L ALT 52 H (<50) IU/L Alkaline Phosphatase 63 (38-126) U/L Total Creatine Kinase 459 H (55-170) U/L Troponin I < 0.012 (0.01-0.034) ng/mL Total Protein 7.8 (6.3-8.2) g/dL Albumin 4.4 (3.5-5.0) g/dL Globulin 3.4 (1.7-4.1) g/dL Albumin/Globulin Ratio 1.3 (1.0-2.8) Vitamin B12 688 (239-931) pg/mL Folate 13.1 (2.76-20.0) ng/mL U Opiates 300ng/mL cut Negative (Negative) Ur Oxycodone Screen Negative (Negative) Urine Methadone Screen Negative (Negative) Ur Barbiturates Screen Negative (Negative) U Tricyclic Antidepress Negative (Negative) Ur Phencyclidine Scrn Negative (Negative) Ur Amphetamines Screen Negative (Negative) U Methamphetamines Scrn Negative (Negative) Ur MDMA Scrn (Ecstasy) Negative (Negative) U Benzodiazepines Scrn Negative (Negative) Urine Cocaine Screen Negative (Negative) U Marijuana (THC) Screen Negative (Negative) Urine pH Normal (Normal) Urine Specific [place] Normal (Normal) Ethyl Alcohol < 10 ( - 10) mg/dL Ur Creatinine Normal (Normal) Chlamy pneumoniae PCR Not detected (Not Detect) Adenovirus (PCR) Not detected (Not Detect) B. pertussis DNA (PCR) Not detected (Not Detect) B.parapertussis DNA PCR Not detected (Not Detecte) Coronavirus OC43 (PCR) Not detected (Not Detect) Coronavirus HKU1 (PCR) Not detected (Not Detect) Coronavirus 229E (PCR) Not detected (Not Detect) SARS-CoV-2 (PCR) Not detected (Not Detecte) Coronavirus NL63 (PCR) Not detected (Not Detect) Human Metapneumovir PCR Not detected (Not Detect) Influenza Type A (PCR) Not detected (Not Detect) Influenza Type B (PCR) Not detected (Not Detect) M. pneumoniae (PCR) Not detected (Not Detect) Parainfluenza 1 (PCR) Not detected (Not Detect) Parainfluenza 2 (PCR) Not detected (Not Detect) Parainfluenza 3 (PCR) Not detected (Not Detect) Parainfluenza 4 (PCR) Not detected (Not Detect) RSV (PCR) Not detected (Not Detect) Entero/Rhino (PCR) Not detected (Not Detect) Point of Care Testing Glucose POC 100 Urine Dip Bedside Urine Glucose Negative Bedside Urine Bilirubin - Negative Bedside Urine Ketone - Negative Urine Specific Edison 1.015 Bedside Urine Occult Blood - Negative Bedside Urine pH 6.0 Bedside Urine Protein - Negative Bedside Urine Urobilinogen - Negative Bedside Urine Nitrite - Negative Bedside Urine Leukocytes - Negative Esterase MDM Narrative Medical decision making narrative: 34-year-old male with 2 weeks' duration bilateral lower extremity distal numbness sensation, previous low back pain but not particularly worse recently, no injury, seen here 02/15/2024 with similar symptoms, felt to have peripheral neuropathy started on gabapentin 300 mg 3 times daily. Still having distal numbness sensation in both feet, now few days of bilateral hand numbness sensation. He has interval increased sensation of weakness, feels like he can not get around and walk count, generalized weakness. No shortness of breath. He had been having intermittent chest discomfort but not recent, not today. Previous evaluation 1126 no imaging, we will pursue imaging today. CT brain, cervical spine, thoracic spine, lumbar spine ordered. Labs sent. White blood cell count again not elevated, CPK mildly elevated only. EKG unremarkable. Electrolytes again normal. Glucose normal. Renal function normal. Liver functions normal. CT head no acute changes, see radiology report CT cervical spine no acute changes, no significant narrowing, see radiology report CT thoracic spine, no acute changes, no significant narrowing, see radiology report. CT lumbar spine, no acute changes, some ?premature? narrowing foraminal L4-L5 and L5-S1, no description of central cord area narrowing, see radiology report Trial of ambulation, patient was fairly unsteady per nursing. DDx consider spinal cord compression but CT C-spine T-spine L-spine imaging not convincing at any particular level for significant central spinal problem although spine could be further delineated with MRI when available, consider Guill[place] with peripheral predominant numbness, consider transverse myelitis but unclear level of symptoms, consider myositis but CPK not particularly elevated, seems atypical for stroke or other brain etiology with negative CT head but MRI brain imaging could be performed, recent TSH previous visit unremarkable doubt hypothyroidism, consider B12/folate deficiencies but these might be send out labs, consider malingering, other. Consider MRI brain/spine imaging. Electrolytes unremarkable. Repeat ESR sent to compared to prior study last visit, pending. Will add vitamin B12 and folic acid levels ordered, might be send out labs. Signed out to oncoming ED shift physician Dr. Jocelynn Cabezas: Received turned over. Review patient's history and physical. The patient's workup up to this point. Is examined workup is not consistent with an infectious process. Low suspicion for any sort of fractures or dislocation based on his workup. Did consider an inflammatory process however ESR and CRP are negative. B12 and folate are negative. I did consider Guillain-[place] however only potential inciting event could have been the flu vaccine although this is highly unlikely. Attempted to stand the patient at bedside and he was very much unable to support his weight. He states he thinks it is because of both pain and weakness. Patient does require further evaluation to include MRI. The studies were ordered. Care turned over to day provider change of shift to follow up and disposition. <Corrine Riggs, DO - Last Filed: 02/20/24 13:26> Lab Data Labs: Lab Results 02/19/24 02/19/24 02/19/24 Range/Units 15:55 16:53 19:20 WBC 5.3 (4.5-11.0) X10^3/uL RBC 4.69 (4.5-5.9) X10^6/uL Hgb 15.6 (13.5-17.5) g/dL Hct 45.6 (41-53) % MCV 97.3 (80-100) fL MCH 33.3 (26-34) PG MCHC 34.3 (30-36) % RDW 12.6 (11.6-14.8) % Plt Count 314 (150-400) X10^3/uL Neut % (Auto) 31.3 L (50-75) % Lymph % (Auto) 55.2 H (25-40) % [place] % (Auto) 11.7 (3-14) % Eos % (Auto) 1.5 L (2-4) % Baso % (Auto) 0.3 (0-2) % Neut # (Auto) 1700 (7016-5529) /uL Lymph # (Auto) 3000 (9776-9055) /uL [place] # (Auto) 600 (0-900) /uL Eos # (Auto) 100 (0-450) /uL Baso # (Auto) 0 (0-100) /uL ESR 2 (0-15) MM/HR Sodium 138 (137-145) mmol/L Potassium 4.5 (3.4-5.1) mmol/L Chloride 103 (98-107) mmol/L Carbon Dioxide 30 (22-32) mmol/L BUN 12 (9-20) mg/dL Creatinine 1.06 (0.66-1.25) mg/dL Estimated GFR > 60 (>60) mL/min BUN/Creatinine Ratio 11.3 (6-22) Glucose 87 (70-100) mg/dL Calcium 9.2 (8.4-10.2) mg/dL Total Bilirubin 0.6 (0.2-1.3) mg/dL AST 70 H (17-59) IU/L ALT 52 H (<50) IU/L Alkaline Phosphatase 63 (38-126) U/L Total Creatine Kinase 459 H (55-170) U/L Troponin I < 0.012 (0.01-0.034) ng/mL Total Protein 7.8 (6.3-8.2) g/dL Albumin 4.4 (3.5-5.0) g/dL Globulin 3.4 (1.7-4.1) g/dL Albumin/Globulin Ratio 1.3 (1.0-2.8) Vitamin B12 688 (239-931) pg/mL Folate 13.1 (2.76-20.0) ng/mL U Opiates 300ng/mL cut Negative (Negative) Ur Oxycodone Screen Negative (Negative) Urine Methadone Screen Negative (Negative) Ur Barbiturates Screen Negative (Negative) U Tricyclic Antidepress Negative (Negative) Ur Phencyclidine Scrn Negative (Negative) Ur Amphetamines Screen Negative (Negative) U Methamphetamines Scrn Negative (Negative) Ur MDMA Scrn (Ecstasy) Negative (Negative) U Benzodiazepines Scrn Negative (Negative) Urine Cocaine Screen Negative (Negative) U Marijuana (THC) Screen Negative (Negative) Urine pH Normal (Normal) Urine Specific [place] Normal (Normal) Ethyl Alcohol < 10 ( - 10) mg/dL Ur Creatinine Normal (Normal) Chlamy pneumoniae PCR Not detected (Not Detect) Adenovirus (PCR) Not detected (Not Detect) B. pertussis DNA (PCR) Not detected (Not Detect) B.parapertussis DNA PCR Not detected (Not Detecte) Coronavirus OC43 (PCR) Not detected (Not Detect) Coronavirus HKU1 (PCR) Not detected (Not Detect) Coronavirus 229E (PCR) Not detected (Not Detect) SARS-CoV-2 (PCR) Not detected (Not Detecte) Coronavirus NL63 (PCR) Not detected (Not Detect) Human Metapneumovir PCR Not detected (Not Detect) Influenza Type A (PCR) Not detected (Not Detect) Influenza Type B (PCR) Not detected (Not Detect) M. pneumoniae (PCR) Not detected (Not Detect) Parainfluenza 1 (PCR) Not detected (Not Detect) Parainfluenza 2 (PCR) Not detected (Not Detect) Parainfluenza 3 (PCR) Not detected (Not Detect) Parainfluenza 4 (PCR) Not detected (Not Detect) RSV (PCR) Not detected (Not Detect) Entero/Rhino (PCR) Not detected (Not Detect) Point of Care Testing Glucose POC 100 Urine Dip Bedside Urine Glucose Negative Bedside Urine Bilirubin - Negative Bedside Urine Ketone - Negative Urine Specific [place] 1.015 Bedside Urine Occult Blood - Negative Bedside Urine pH 6.0 Bedside Urine Protein - Negative Bedside Urine Urobilinogen - Negative Bedside Urine Nitrite - Negative Bedside Urine Leukocytes - Negative Esterase MDM Narrative Medical decision making narrative: 34-year-old male with 2 weeks duration bilateral lower extremity distal numbness sensation, previous low back pain but not particularly worse recently, no injury, seen here 02/15/2024 with similar lower extremity tingling numbness symptoms, felt to have peripheral neuropathy started on gabapentin 300 mg 3 times daily. Still having distal numbness sensation in both feet, now few days of bilateral hand numbness sensation. He has interval increased sensation of weakness, feels like he can not get around and walk count, generalized weakness, perhaps more distal than proximal. No shortness of breath. He had been having intermittent chest discomfort but not recent, not today. Previous evaluation 02/15/24 no imaging, we will pursue imaging today. CT brain, cervical spine, thoracic spine, lumbar spine ordered. Labs sent. White blood cell count again not elevated, CPK mildly elevated only. EKG unremarkable. Electrolytes again normal. Glucose normal. Renal function normal. Liver functions normal. CT head no acute changes, see radiology report CT cervical spine no acute changes, no significant narrowing, see radiology report CT thoracic spine, no acute changes, no significant narrowing, see radiology report. CT lumbar spine, no acute changes, some narrowing foraminal L4-L5 and L5-S1, no description of central cord area narrowing, see radiology report Trial of ambulation, patient was fairly unsteady per nursing. DDx consider spinal cord compression but CT C-spine T-spine L-spine imaging not convincing at any particular level for significant central spinal problem although spine could be further delineated with MRI when available, consider Guill[place] with peripheral predominant numbness, consider transverse myelitis but unclear level of symptoms, consider myositis but CPK not particularly elevated, seems atypical for stroke or other brain etiology with negative CT head but MRI brain imaging could be performed, recent TSH previous visit unremarkable doubt hypothyroidism, consider B12/folate deficiencies but these might be send out labs, consider malingering, other. Consider MRI brain/spine imaging. Electrolytes unremarkable. Repeat ESR sent to compared to prior study last visit, pending. Will add vitamin B12 and folic acid levels ordered, might be send out labs. Signed out to [facility] ED shift physician Dr. Jocelynn Cabezas: Received turned over. Review patient's history and physical. The patient's workup up to this point. Is examined workup is not consistent with an infectious process. Low suspicion for any sort of fractures or dislocation based on his workup. Did consider an inflammatory process however ESR and CRP are negative. B12 and folate are negative. I did consider Guillain-[place] however only potential inciting event could have been the flu vaccine although this is highly unlikely. Attempted to stand the patient at bedside and he was very much unable to support his weight. He states he thinks it is because of both pain and weakness. Patient does require further evaluation to include MRI. The studies were ordered. Care turned over to day provider change of shift to follow up and disposition. 11/04/2023 Dr. Riggs: Patient signed out to myself by Dr. Cabezas. Patient was seen myself at recent visit on 02/15/2024. At that time patient had paresthesias and pain in bilateral hands lower extremities up towards thigh. Was able to ambulate but could not feel his feet very well on the ground. Patient is examined that time showed some decreased sensation but no other acute changes he would noted he had had a similar episode several years ago that is self resolved. Patient's labs were reviewed mildly elevated AST ALT and total CK of 459. TSH, B12 folate are all normal UDS and ETOH are negative respiratory panel is negative. Patient had head CT cervical spine thoracic and lumbar spine CT he that showed some degenerative changes but no other acute change. Patient went for MR of the brain, C-spine thoracic and L-spine this morning during sign- out. Peak flow obtained is 550. EXAM GEN: well nourished, well appearing male, alert and oriented x 3, patient appears to be in mild distress. HEENT: Atraumatic, pupils are equal round reactive to light, extraocular movements are intact, nares are clear, TMs are clear with no fluid, there is no conjunctival pallor. Throat is clear without any exudates, erythema, tonsillar enlargement or uvular deviation, no facial droop HEART: Regular rate and rhythm without murmur, clicks, rubs. Pulses are equal in upper and lower extremities LUNGS:Lungs clear to auscultation, no wheezes, rales, crackles, chest moves symmetrically ABD:bowel sounds normal, soft, non-tender, no guarding, rebound, rigidity, no masses noted, no hepatosplenomegaly :No CVA tenderness MSCL: Non-tender, no muscle atrophy, muscles strength 5/5 upper and lower extremities with no drift, patient does have slightly decreased plantar flexion left compared to right, irrigator equal bilaterally, full range of motion of upper extremities, but has good movement of the thighs but does have some ataxia of the lower extremities. NEURO:CN 2-12 intact, no clonus, reflexes decreased sensation bilateral lower extremity, finger nose finger test normal bilaterally, heel gusman test difficult bilaterally. No dysarthria or aphasia. MRI brain several T2 hyperintense foci seen in the white matter primarily seen peripherally pattern, labs are to patient's history of migraines differential includes multiple sclerosis, no findings of acute or subacute infarction no prior territorial infarct seen. MRI C-spine focal C5-C6 degenerative change moderate right-sided neural foraminal narrowing. MRI T-spine noncontrast thoracic spine MRI within normal limits MRI L-spine premature lumbar spine degenerative changes worse inferiorly. Imaging of the brain shows potential source of patient's symptoms although they note migraines can sometimes cause similar changes. There is minimal central canal narrowing and moderate central canal narrowing in the lumbar spine there is some compression upon the exiting nerve roots at L5-S1 as well as some other changes throughout the lower lumbar spine but does not account for patient's upper extremity symptoms. Discussed with patient joe needs transfer to be evaluated by Neurology regardless of result today patient is quite weak with progression of his symptoms since last seen. Discussed with patient might require lumbar puncture dependent an MR results consultation with Neurology. Did obtain peak flow. Patient does not appreciate any trouble swallowing, no difficulty with breathing. No issues with incontinence. Calls out to multiple facilities. 1000: Consult with neurology, Dr. Sommers at [facility]. Reviewed patient's history most recent visit and workup today including MRI results. States we can hold off on lumbar puncture at this time they will see patient they are asked that we child with the hospitalist for transfer. 1053: Spoke with Dr. Arellano, hospitalist who accepts for transfer. Reviewed findings with patient, plan for transfer he was agreeable. For something for pain but would like to avoid narcotics constipation we will give some Tylenol. All questions answered. Patient stood with nursing but with difficulty, weak bilateral lower extremities. Had some difficulty removing his shirt. Discharge Plan Departure Patient Disposition: Xfer Acute [facility] Clinical Impression: Ataxia, Neuropathy Prescriptions: No Action gabapentin [Neurontin] 300 mg capsule 300 mg PO TID Qty: 30 0RF Referrals: ProviderRoger [Primary Care Provider] -
--- NOTE | 2024-02-19 17:01 | PC.NURSE ---
Pt reports having decreased feeling in his tongue, lower extremities, as well as weakness in his arms and legs. Pt reports difficulty ambulating at home.
[2024-02-19 17:08] LABS: Ur Creatinine Normal (Normal); Ur Specific Gravity Normal (Normal); Urine Amphetamines Negative (Negative); Urine Barbiturates Negative (Negative); Urine Benzodiazepines Negative (Negative); Urine Cocaine Negative (Negative); Urine MDMA Negative (Negative); Urine Methadone Negative (Negative); Urine Methamphetamines Negative (Negative); Urine Opiates Negative (Negative); Urine Oxycodone Negative (Negative); Urine Phencyclidine Negative (Negative); Urine THC Negative (Negative); Urine Tricyclic Antidepressant Negative (Negative); Urine pH Normal (Normal)
--- NOTE | 2024-02-19 19:28 | PC.NURSE ---
Pt tresting in bed, with at bedside. Pt reports pain bilateral in arms and leg. Describes as sharp strong pain in elbows, radiating up. 10/10. Pt also states he has pain in his lower legs, and unable to feel is toes. Pulses intact and able to wiggle toes. States he is able to feel nurse touching feet but less ablity to feel sensation. Also reports pain with touch internally and externally. Provider (Jocelynn) notified of continued pain and pt request for medication.
[2024-02-19 19:36] LABS: Erythrocyte Sedimentation Rate 2 MM/HR (0-15)
[2024-02-19] MEDS: ACETAMINOPHEN IV 1,000 MG/100 ML VIAL 400 MG IV (19:38)
[2024-02-19 19:47] LABS: Folate 13.1 ng/mL (2.76-20.0); Vitamin B12 688 pg/mL (239-931)
[2024-02-19 20:18] LABS: Adenovirus Not Detected (Not Detect); B. parapertussis Not Detected (Not Detecte); Bordetella pertussis Not Detected (Not Detect); Chlamydophila pneumoniae Not Detected (Not Detect); Coronavirus 229E Not Detected (Not Detect); Coronavirus HKU1 Not Detected (Not Detect); Coronavirus NL 63 Not Detected (Not Detect); Coronavirus OC43 Not Detected (Not Detect); Human Metapneumovirus Not Detected (Not Detect); Human Rhinovirus/Enterovirus Not Detected (Not Detect); Influenza A Not Detected (Not Detect); Influenza B Not Detected (Not Detect); Mycoplasma pneumoniae Not Detected (Not Detect); Parainfluenza Virus 1 Not Detected (Not Detect); Parainfluenza Virus 2 Not Detected (Not Detect); Parainfluenza Virus 3 Not Detected (Not Detect); Parainfluenza Virus 4 Not Detected (Not Detect); Respiratory Syncytial Virus Not Detected (Not Detect); SARS- CoV-2 Not Detected (Not Detecte)
[2024-02-19] MEDS: HYDROMORPHONE 1 MG INJ IV (21:15)
--- NOTE | 2024-02-19 21:54 | PC.NURSE ---
Pt resting in bed with at bedside. Pt appears more comfortable after the dilaudid, he reports some ease of pain. Pt VS stable, and he remains alert and oriented. Pt has eaten dinner (burrito brought by ) offered water. Last BM yesterday, reports still passing gas. Not able to urinate at this time.
[2024-02-20] VITALS (26 sets, daily range): BP systolic 131–184; BP diastolic 64–101; PULSE 72–106; TEMP 36.7; O2SAT 93–100
--- NOTE | 2024-02-20 05:18 | PC.NURSE ---
Patient sleeping soundly in bed, vital signs remain stable. Pt has had increased htn and decreased 02 sats intermittently while sleeping. provider notified and no new orders. Per Dr. Cabezas, awaiting MRI today.
--- NOTE | 2024-02-20 05:35 | DI.MRI.S_ITS ---
PROCEDURE: MR LUMBAR SPINE WO CON INDICATIONS: bilateral lower extremity weakness TECHNIQUE: Noncontrast sagittal T1 spin echo and T2 fast echo, sagittal STIR, and T2 fast spin echo through the lumbar spine. In cases with scoliosis, additional coronal T2 fast spin echo may be performed. COMPARISON: [facility], MR, MR CERVICAL SPINE WO CON, 02/20/2024, 7:13. [facility], MR, MR THORACIC SPINE WO CON, 02/20/2024, 7:13. [facility], MR, MR HEAD/BRAIN WO CON, 02/20/2024, 7:13. [facility], CT, CT LUMBAR SPINE WO CON, 02/19/2024, 15:22. FINDINGS: Image quality: Diagnostic, with note made of motion artifact. Alignment and Curvature: There is normal bony alignment. Bone Marrow: Marrow is of normal overall signal. No acute vertebral body compression fractures. Spinal Cord: Conus medullaris terminates at the L1 level. Visualized cord demonstrates normal signal and size. Paraspinous Soft Tissues: No paravertebral masses. T12-L1: Normal appearance. L1-L2: Normal appearance. L2-L3: The disc height and disk signal are well-preserved. Mild generalized disc bulge is seen. There is mild to moderate right-sided and mild left-sided neural foraminal narrowing. No central canal narrowing is seen. L3-L4: The disc height and disk signal are well-preserved. Mild to moderate disc bulge is seen, which is eccentric to the right. Mild to moderate facet hypertrophy is seen. There is moderate right-sided and minimal to moderate left-sided neural foraminal narrowing. Minimal central canal narrowing is seen. L4-L5: The disc height is well-preserved. Loss of disc signal is seen at this level. Mild to moderate disc bulge is seen, with a central disc protrusion. Mild facet joint hypertrophy is seen. Moderate bilateral neural foraminal narrowing is seen. Mild central canal narrowing is seen. L5-S1: The disc height is well-preserved. Loss of disc signal is seen at this level. Moderate generalized disc bulge is seen. There is a superimposed central disc protrusion. There is a focal annular fissure seen posteriorly. Mild to moderate facet hypertrophy is seen. There is at least moderate bilateral neural foraminal narrowing seen. There is a degree of compression seen upon the exiting nerve roots. Moderate central canal narrowing is seen, which is exacerbated by prominent epidural fat. IMPRESSION: Premature lumbar spine degenerative changes are seen, which are worst inferiorly. If there is strong clinical concern for epidural abscess, please consider a short-term follow-up contrast enhanced MRI. Dictated by: Miky Hastings M.D. on 02/20/2024 at 8:32 Approved by: Miky Hastings M.D. on 02/20/2024 at 8:35
--- NOTE | 2024-02-20 05:35 | DI.MRI.S_ITS ---
PROCEDURE: MR HEAD/BRAIN WO CON INDICATIONS: extremity weakness, inability to walk TECHNIQUE: Noncontrast axial T1 spin echo, axial T2 fast spin echo, sagittal and axial FLAIR, coronal T2 fast spin echo, axial gradient echo, axial diffusion and ADC through the brain. COMPARISON: [facility], CT, CT HEAD/BRAIN WO CON, 02/19/2024, 15:22. FINDINGS: Image quality: Excellent. CSF Spaces: Basal cisterns are patent. No extra-axial fluid collections. Ventricles are normal in size and shape. Brain: Several foci of hyperintense T2 weighted signal can be seen within the white matter, which are primarily seen peripherally. No definite involvement of the corpus callosum, brainstem, or cerebellum can be seen. No intracranial masses or hemorrhage. Gallo/white matter interface is normal. Brainstem appears normal. Diffusion-weighted images demonstrate no acute infarct. Normal intravascular flow voids are present. Skull and face: Calvarium has normal marrow signal. Orbits appear normal. Sinuses: Sinuses and mastoids are clear. IMPRESSION: Several T2 hyperintense foci can be seen within the white matter, which are primarily seen peripherally. This pattern is commonly observed in patients with a history of migraine headaches. Differential diagnosis includes multiple sclerosis, yet this is considered to be less likely based upon the imaging appearance. No findings of acute or subacute infarction can be seen. No prior territorial infarct can be seen. To the limits of this noncontrast study, no findings of intracranial masses or mass effect can be seen. Dictated by: Miky Hastings M.D. on 02/20/2024 at 8:28 Approved by: Miky Hastings M.D. on 02/20/2024 at 8:30
--- NOTE | 2024-02-20 05:35 | DI.MRI.S_ITS ---
PROCEDURE: MR CERVICAL SPINE WO CON INDICATIONS: bilateral upper extremity weakness TECHNIQUE: Noncontrast sagittal T1 spin echo and T2 fast spin echo, sagittal STIR, foraminal oblique sagittal T2 fast spin echo, and axial gradient echo or T2 fast spin echo through the cervical spine. COMPARISON: [facility], MR, MR THORACIC SPINE WO CON, 02/20/2024, 7:13. [facility], MR, MR LUMBAR SPINE WO CON, 02/20/2024, 7:13. [facility], MR, MR HEAD/BRAIN WO CON, 02/20/2024, 7:13. [facility], CT, CT CERVICAL SPINE WO CON, 02/19/2024, 15:22. FINDINGS: Image quality: This examination is limited by involuntary motion artifact. Alignment and Curvature: There is overall straightening of the normal cervical lordosis. No focal AP alignment abnormality is seen. Bone Marrow: Marrow demonstrates normal overall signal. Spinal Cord: Visualized spinal cord has normal size and signal. No cerebellar tonsillar herniation. Paraspinous Soft Tissues: No paravertebral masses. Prevertebral soft tissues are normal in thickness. C2-C3: Normal appearance. C3-C4: Normal appearance. C4-C5: The disc height and disk signal are well-preserved. Mild to moderate disc osteophyte complex is seen. Yqdx-[id number] facet hypertrophy is seen. No significant neural foraminal or central canal narrowing can be seen. C5-C6: The disc height and disk signal are well-preserved. Mild to moderate disc bulge is seen, which is eccentric to the right. Mac row mild facet there is moderate right-sided and no significant left-sided neural foraminal narrowing. Mac row no central C6-C7: Normal appearance. C7-T1: Normal appearance. IMPRESSION: Focal C5-C6 degenerative change is seen, with moderate right-sided neural foraminal narrowing. If there is strong clinical concern for epidural abscess in this patient with this given history, please consider a short-term follow-up contrast enhanced MRI. Dictated by: Miky Hastings M.D. on 02/20/2024 at 8:35 Approved by: Miky Hastings M.D. on 02/20/2024 at 8:38
--- NOTE | 2024-02-20 05:35 | PC.NURSE ---
Pt has been sleeping most of the night. Pt reports increased pain in bilateral upper exctremities, endorsing 9/10 pain. Worse with movement. Dr[address] Cabezas updated.
[2024-02-20] MEDS: HYDROCODONE/ACET 5/325 TABLET 1 TAB PO (05:41)
--- NOTE | 2024-02-20 07:06 | DI.MRI.S_ITS ---
PROCEDURE: MR THORACIC SPINE WO CON INDICATIONS: The upper and lower extremity weakness TECHNIQUE: Noncontrast sagittal T1 spine echo and T2 fast spin echo, sagittal STIR, and T2 fast spin echo through the thoracic spine. COMPARISON: [facility], MR, MR CERVICAL SPINE WO CON, 02/20/2024, 7:13. [facility], MR, MR LUMBAR SPINE WO CON, 02/20/2024, 7:13. [facility], MR, MR HEAD/BRAIN WO CON, 02/20/2024, 7:13. [facility], CT, CT THORACIC SPINE WO CON, 02/19/2024, 15:22. FINDINGS: Image quality: Excellent. Alignment and Curvature: There is normal bony alignment. Bone Marrow: Marrow is of normal overall signal. No acute vertebral body compression fractures. Spinal Cord: Visualized spinal cord is normal in size and signal. Paraspinous Soft Tissues: No paravertebral masses. Miscellaneous: No significant disc pathology is seen. No significant neural foraminal or central canal narrowing can be seen. IMPRESSION: Noncontrast thoracic spine MRI within normal limits. If there is concern for epidural abscess, please consider a short-term follow-up contrast enhanced MRI. Dictated by: Miky Hastings M.D. on 02/20/2024 at 8:31 Approved by: Miky Hastings M.D. on 02/20/2024 at 8:32
--- NOTE | 2024-02-20 09:55 | PC.NURSE ---
Pt reports feeling as if he has food stuck in his throat and swallows frequently to attempt to clear. No change in sensation.
[2024-02-20] MEDS: ACETAMINOPHEN 325 MG TABLET 650 MG PO (10:40)
--- NOTE | 2024-02-20 11:15 | PC.NURSE ---
Pt able to stand and use walker, gait belt, with 2 person assist to sink to brush his teeth, wash his face. Within 5minutes pt having difficulty standing and assisted back into bed. Pt sitting at bedside for bed bath. Bed linens changed and pt changed into fresh street clothes. Pt remains sitting at bedside with call light in reach and spouse sitting at bedside with him.
--- NOTE | 2024-02-20 13:29 | PC.NURSE ---
Report given to JANICE Rivera. at 1330.
== END 2024-02-20 13:31 | disposition short-term general hospital (02) ==
PROVIDERS: Emergency Medicine; Emergency Provider Emergency Medicine
DX: R27.0 Ataxia, unspecified (principal); G62.9 Polyneuropathy, unspecified; M62.81 Muscle weakness (generalized)
CPT/HCPCS: 36415; 70450; 70551; 72125; 72128; 72131; 72141; 72146; 72148; 80053; 80305; 80320; 81003; 82550; 82607; 82746; 82962; 84484; 85025; 85651; 87633; 93005; 94150; 96365; 96375; 99284; J0134; J1171